=== PATIENT | female | born 1940 | race Two or more races ===

== ENCOUNTER 2019-04-17 09:52 | Outpatient (CLI) | payer OTHER | END 2019-04-17 16:20 | disposition home or self-care (01) | LOC: TOM 09:52 | DX: K56.600 Partial intestinal obstruction, unspecified as to cause (principal); K63.5 Polyp of colon ==

== ENCOUNTER 2022-09-07 11:20 | Emergency (ER) | payer OTHER ==
[~2022-09-07] VITALS: Ht 160 cm; Wt 85.7 kg
[2022-09-07] MEDS ORDERED: PEPCID AC20 MG PO (21:28)
[2022-09-07] MEDS ORDERED: LEVSIN/SL0.125 MG SL (21:28)
== END 2022-09-07 21:32 | disposition home or self-care (01) ==
LOC: ER 11:20
DX: R10.11 Right upper quadrant pain (principal); Z91.041 Radiographic dye allergy status